=== PATIENT | male | born 1955 | race Caucasian/White ===

== ENCOUNTER 2016-03-25 19:48 | Inpatient (IN) | payer MEDICAID ==
[~2016-03-25] VITALS: Ht 180.3 cm; Wt 105.4 kg
[~2016-03-25 19:48] MED LIST: ASPI-231 PO; ATOR10TA PO; BENA40TA2 PO; CARV12.544 PO; CLOP75TA28 PO; INSLANTI SC; METF-316 PO; NOVOLOG SC; RANO1000 PO; SERT-160 PO
[2016-03-25 21:40] LABS: Basophils # (auto) 0 uL; Basophils % (auto) 0.2 % (0.0-2.0); Eosinophils # (auto) 0 uL; Eosinophils % (auto) 0.4 % (0.0-7.0); Hematocrit 39.3 % (41.0-53.0); Lymphocytes # (auto) 0.2 uL; Lymphocytes % (auto) 1.6 % (10.0-50.0); Mean Corpuscular Hemoglobin 29.6 pg (28.0-32.0); Mean Corpuscular Hgb Conc. 33.1 g/dL (32.0-36.0); Mean Corpuscular Volume 89.4 fL (80.0-100.0); Mean Platelet Volume 7.4 fL (7.4-10.4); Monocytes # (auto) 0.3 uL; Monocytes % (auto) 2.5 % (0.0-12.0); Neutrophils # (auto) 10.4 uL; Neutrophils % (auto) 95.3 % (37.0-80.0); Platelet Count (auto) 231 10^3/uL (140-450); Red Cell Distribution Width 15.4 % (11.6-16.0); White Blood Cell 10.9 10^3/uL (4.4-10.8)
[2016-03-25 22:08] LABS: Albumin 3.4 g/dL (3.4-5.0); BUN/Creatinine Ratio 18.3; Bilirubin, Total 2.1 mg/dL (0.2-1.0); Calcium 8.3 mg/dL (8.5-10.1); Magnesium 1.8 mg/dL (1.6-2.6); Potassium 3.8 mmol/L (3.5-5.1); Total Protein 7.1 g/dL (6.4-8.2)
[2016-03-25 22:19] LABS: Partial Thromboplastin Time 20.9 sec (22.64-33.71); Prothrombin Time 10.3 sec (9.37-12.3)
[2016-03-25] MEDS ORDERED: AMLO5TAB2 PO (22:51)
[2016-03-25] MEDS ORDERED: BENA40TA2 PO (22:51)
[2016-03-25] MEDS ORDERED: PIPERACILLIN-TAZOB 3.375GM 100 ML IV ONE (23:15)
[2016-03-26] VITALS (7 sets, daily range): BP systolic 131–155; BP diastolic 65–81
[2016-03-26] MEDS ORDERED: ACETAMINOPHEN 325 MG TAB PO PRN (00:30)
[2016-03-26] MEDS ORDERED: DEXTROSE (50%) 50ML SYRG IV PRN (00:30)
[2016-03-26] MEDS ORDERED: ONDANSETRON HCL 4 MG/2 ML VIAL IV PRN (00:30)
[2016-03-26 01:58] LABS: Temperature: 23.5 C (20.0-25.0)
[2016-03-26] MEDS: ACCU-CHEK COMFORT CURVE STRIP VI SCH ×4 (05:56→23:55)
[2016-03-26] MEDS: InsuLIN REG 1unit/0.01ml Soln (100units/ml) SC SCH ×4 (05:59→23:57)
[2016-03-26] MEDS ORDERED: DICY20TA66 PO (07:47)
[2016-03-26] MEDS ORDERED: OMEP1POW PO (07:47)
[2016-03-26] MEDS ORDERED: FAMO-12 PO (07:47)
[2016-03-26] MEDS: SERTRALINE HCL 50 MG TAB PO SCH (09:44)
[2016-03-26] MEDS: ASPirin 81 mg TAB PO SCH (09:44)
[2016-03-26] MEDS: CLOPIDOGREL BISULFATE 75 MG TAB PO SCH (09:45)
[2016-03-26] MEDS: amLODIPine BESYLATE 5 MG TAB PO SCH (09:45)
[2016-03-26] MEDS: HYDROcodone-ACET 5/325MG TAB PO PRN ×2 (09:45→15:47)
[2016-03-26] MEDS: BENAZEPRIL HCL 10 MG TAB PO SCH (09:46)
[2016-03-26] MEDS: CARVEDILOL 12.5 MG TAB PO SCH ×2 (09:46→22:22)
[2016-03-26] MEDS: ENOXAPARIN SOD 40 MG/0.4 ML SYRINGE SC SCH (09:47)
[2016-03-26] MEDS ORDERED: LORazepam 2MG/ML-1ML VIAL IV ONE (12:00)
[2016-03-26 13:42] LABS: Basophils # (auto) 0 uL; Basophils % (auto) 0.2 % (0.0-2.0); Eosinophils # (auto) 0 uL; Hematocrit 36.3 % (41.0-53.0); Hemoglobin 12.2 g/dL (13.5-17.5); Lymphocytes # (auto) 0.2 uL; Lymphocytes % (auto) 3.9 % (10.0-50.0); Mean Corpuscular Hgb Conc. 33.5 g/dL (32.0-36.0); Mean Corpuscular Volume 89.7 fL (80.0-100.0); Mean Platelet Volume 7.5 fL (7.4-10.4); Monocytes # (auto) 0.1 uL; Monocytes % (auto) 2.5 % (0.0-12.0); Neutrophils # (auto) 5.4 uL; Neutrophils % (auto) 93.4 % (37.0-80.0); Platelet Count (auto) 197 10^3/uL (140-450); Red Cell Distribution Width 15.5 % (11.6-16.0); White Blood Cell 5.8 10^3/uL (4.4-10.8)
[2016-03-26 14:07] LABS: BUN/Creatinine Ratio 14.4; Calcium 8.5 mg/dL (8.5-10.1); Magnesium 2.1 mg/dL (1.6-2.6); Potassium 3.7 mmol/L (3.5-5.1)
[2016-03-26] MEDS: FAMOTIDINE 20 MG TAB PO SCH ×2 (15:48→22:23)
[2016-03-26 15:49] LABS: Cholesterol 178 mg/dL (<200); HDL Cholesterol 45 mg/dL (40-59); LDL Cholesterol 113 mg/dL (<100); Triglycerides 221 mg/dL (<150)
[2016-03-26] MEDS ORDERED: IOHEXOL 350 MG/ML 100ML IJ ONE (17:00)
[2016-03-26] MEDS: ATORVASTATIN 20 MG TAB PO SCH (22:23)
[2016-03-27] MEDS: HYDROcodone-ACET 5/325MG TAB PO PRN ×2 (02:36→13:27)
[2016-03-27 05:30] VITALS: BP 121/66
[2016-03-27] MEDS: ACCU-CHEK COMFORT CURVE STRIP VI SCH ×3 (06:10→17:39)
[2016-03-27] MEDS: InsuLIN REG 1unit/0.01ml Soln (100units/ml) SC SCH ×3 (06:16→17:40)
[2016-03-27 07:22] LABS: Albumin 2.7 g/dL (3.4-5.0); Bilirubin, Total 2.3 mg/dL (0.2-1.0); Magnesium 2.1 mg/dL (1.6-2.6); Potassium 3.7 mmol/L (3.5-5.1); Total Protein 6.1 g/dL (6.4-8.2)
[2016-03-27 07:35] LABS: Basophils # (auto) 0 uL; Eosinophils # (auto) 0 uL; Eosinophils % (auto) 0.1 % (0.0-7.0); Hematocrit 33.3 % (41.0-53.0); Hemoglobin 11.3 g/dL (13.5-17.5); Lymphocytes # (auto) 0.3 uL; Mean Corpuscular Volume 88.4 fL (80.0-100.0); Mean Platelet Volume 8.2 fL (7.4-10.4); Monocytes # (auto) 0.3 uL; Monocytes % (auto) 8.5 % (0.0-12.0); Neutrophils # (auto) 3.1 uL; Neutrophils % (auto) 83.4 % (37.0-80.0); Platelet Count (auto) 154 10^3/uL (140-450); Red Cell Distribution Width 15.9 % (11.6-16.0); White Blood Cell 3.7 10^3/uL (4.4-10.8)
[2016-03-27 07:38] LABS: INR 1.13 (0.9-1.15); Prothrombin Time 11.6 sec (9.37-12.3)
[2016-03-27 09:00] VITALS: BP 101/51
[2016-03-27] MEDS ORDERED: MORPHINE SULF INJ 2 MG/ML SYRINGE 1ML IV ONE (09:15)
[2016-03-27] MEDS: ENOXAPARIN SOD 40 MG/0.4 ML SYRINGE SC SCH (10:09)
[2016-03-27] MEDS ORDERED: VANCOMYCIN 1GM/250ML D5W 250 ML IV ONE (11:45)
[2016-03-27] MEDS ORDERED: VANCOMYCIN PER PHARMACY 0 MG IV SCH (11:45)
[2016-03-27 13:00] VITALS: BP 104/66
[2016-03-27] MEDS: FAMOTIDINE 20 MG TAB PO SCH ×2 (13:27→22:11)
[2016-03-27] MEDS: CLOPIDOGREL BISULFATE 75 MG TAB PO SCH (13:29)
[2016-03-27] MEDS: CARVEDILOL 12.5 MG TAB PO SCH ×2 (13:29→22:10)
[2016-03-27] MEDS: ASPirin 81 mg TAB PO SCH (13:29)
[2016-03-27] MEDS: amLODIPine BESYLATE 5 MG TAB PO SCH (13:32)
[2016-03-27] MEDS: SERTRALINE HCL 50 MG TAB PO SCH (13:33)
[2016-03-27] MEDS: BENAZEPRIL HCL 10 MG TAB PO SCH (13:33)
[2016-03-27] MEDS: VANCOMYCIN 1,500 MG in D5W 5% 250 ML IV SCH (14:03)
[2016-03-27] MEDS ORDERED: NITROGLYCERIN 0.4 MG SL TAB SL PRN ×2 (15:30)
[2016-03-27] MEDS ORDERED: MORPHINE SULF INJ 2 MG/ML SYRINGE 1ML IV PRN ×2 (15:30)
[2016-03-27 17:19] VITALS: BP 102/51
[2016-03-27] MEDS: INSULIN DETEMIR(LEVEMIR) 1unit/0.01ml Soln (100units/ml) SC SCH (17:40)
[2016-03-27 18:20] LABS: Urine Bilirubin Negative (Negative); Urine Blood TRACE /uL (Negative); Urine Color Yellow (Yellow); Urine Ketone Negative (Negative); Urine Mucus FEW (None Seen); Urine Nitrite Negative (Negative); Urine RBC 4 /hpf (0 - 3); Urine Squamous Epithelial Cell FEW /hpf (<5); Urine Urobilinogen Normal (Negative)
[2016-03-27 18:27] LABS: Urine Glucose 4+ mg/dL (Normal)
[2016-03-27 21:30] VITALS: BP 108/56
[2016-03-27] MEDS: SODIUM CHLOR 0.9% PF (SALINE LOCK) 10ML VIAL IV SCH (22:10)
[2016-03-27] MEDS: ATORVASTATIN 20 MG TAB PO SCH (22:11)
[2016-03-28] MEDS: VANCOMYCIN 1,500 MG in D5W 5% 250 ML IV SCH ×2 (02:13→14:32)
[2016-03-28 05:00] VITALS: BP 119/62
[2016-03-28] MEDS: InsuLIN REG 1unit/0.01ml Soln (100units/ml) SC SCH ×4 (06:00→18:16)
[2016-03-28] MEDS: SODIUM CHLOR 0.9% PF (SALINE LOCK) 10ML VIAL IV SCH ×2 (06:02→14:00)
[2016-03-28] MEDS: ACCU-CHEK COMFORT CURVE STRIP VI SCH ×4 (06:11→18:16)
[2016-03-28 07:11] LABS: BUN/Creatinine Ratio 21.8; Calcium 7.8 mg/dL (8.5-10.1); Magnesium 2.4 mg/dL (1.6-2.6); Potassium 3.6 mmol/L (3.5-5.1)
[2016-03-28 09:06] VITALS: BP 137/70
[2016-03-28] MEDS ORDERED: LIDOCAINE VISCOUS 2% 15ML UD PO ONE (09:45)
[2016-03-28] MEDS ORDERED: fentaNYL CITRATE 100 MCG/2 ML VL IV ONE (09:45)
[2016-03-28] MEDS ORDERED: MIDAZOLAM HCL 5 MG/ML-1ML VIAL IV ONE (09:45)
[2016-03-28 09:49] LABS: Basophils # (auto) 0 uL; Basophils % (auto) 0.5 % (0.0-2.0); Eosinophils # (auto) 0.1 uL; Eosinophils % (auto) 2.7 % (0.0-7.0); Hemoglobin 10.8 g/dL (13.5-17.5); Lymphocytes # (auto) 0.9 uL; Lymphocytes % (auto) 21.8 % (10.0-50.0); Mean Corpuscular Hemoglobin 29.4 pg (28.0-32.0); Mean Corpuscular Hgb Conc. 32.8 g/dL (32.0-36.0); Mean Corpuscular Volume 89.6 fL (80.0-100.0); Mean Platelet Volume 8.6 fL (7.4-10.4); Monocytes # (auto) 0.4 uL; Monocytes % (auto) 9.3 % (0.0-12.0); Neutrophils # (auto) 2.6 uL; Neutrophils % (auto) 65.7 % (37.0-80.0); Platelet Count (auto) 165 10^3/uL (140-450); White Blood Cell 3.9 10^3/uL (4.4-10.8)
[2016-03-28] MEDS ORDERED: MIDAZOLAM HCL 1MG/1ML-2 ML VIAL ONE (09:54)
[2016-03-28] MEDS: amLODIPine BESYLATE 5 MG TAB PO SCH (10:00)
[2016-03-28] MEDS: BENAZEPRIL HCL 10 MG TAB PO SCH (10:00)
[2016-03-28] MEDS: ASPirin 81 mg TAB PO SCH (10:00)
[2016-03-28] MEDS: INSULIN DETEMIR(LEVEMIR) 1unit/0.01ml Soln (100units/ml) SC SCH (10:00)
[2016-03-28] MEDS: CARVEDILOL 12.5 MG TAB PO SCH ×2 (10:00→21:27)
[2016-03-28] MEDS: FAMOTIDINE 20 MG TAB PO SCH ×2 (10:00→21:26)
[2016-03-28] MEDS: ENOXAPARIN SOD 40 MG/0.4 ML SYRINGE SC SCH (10:00)
[2016-03-28 13:18] VITALS: BP 114/60
[2016-03-28] MEDS: CLOPIDOGREL BISULFATE 75 MG TAB PO SCH (14:07)
[2016-03-28] MEDS: SERTRALINE HCL 50 MG TAB PO SCH (14:08)
[2016-03-28] MEDS: HYDROcodone-ACET 5/325MG TAB PO PRN ×2 (14:08→21:26)
[2016-03-28 17:00] VITALS: BP 126/66
[2016-03-28] MEDS: MORPHINE SULF INJ 2 MG/ML SYRINGE 1ML IV PRN (18:52)
[2016-03-28 20:00] VITALS: BP 136/72
[2016-03-28] MEDS: ATORVASTATIN 20 MG TAB PO SCH (21:26)
[2016-03-28 22:00] VITALS: BP 136/72
[2016-03-29] MEDS: InsuLIN REG 1unit/0.01ml Soln (100units/ml) SC SCH ×5 (01:20→23:34)
[2016-03-29] MEDS: SODIUM CHLOR 0.9% PF (SALINE LOCK) 10ML VIAL IV SCH ×4 (01:20→22:21)
[2016-03-29] MEDS: VANCOMYCIN 1,500 MG in D5W 5% 250 ML IV SCH ×2 (02:57→14:01)
[2016-03-29 05:28] VITALS: BP 120/66
[2016-03-29] MEDS: ACCU-CHEK COMFORT CURVE STRIP VI SCH ×5 (05:56→23:31)
[2016-03-29 06:23] LABS: Basophils # (auto) 0 uL; Basophils % (auto) 0.4 % (0.0-2.0); Eosinophils # (auto) 0.2 uL; Eosinophils % (auto) 3.5 % (0.0-7.0); Hemoglobin 11.3 g/dL (13.5-17.5); Lymphocytes # (auto) 1.4 uL; Lymphocytes % (auto) 31.4 % (10.0-50.0); Mean Corpuscular Hemoglobin 29.2 pg (28.0-32.0); Mean Corpuscular Hgb Conc. 33.1 g/dL (32.0-36.0); Mean Corpuscular Volume 88.2 fL (80.0-100.0); Mean Platelet Volume 8.2 fL (7.4-10.4); Monocytes # (auto) 0.5 uL; Neutrophils # (auto) 2.4 uL; Neutrophils % (auto) 53.7 % (37.0-80.0); Platelet Count (auto) 194 10^3/uL (140-450); Red Cell Distribution Width 15.7 % (11.6-16.0); White Blood Cell 4.5 10^3/uL (4.4-10.8)
[2016-03-29 06:51] LABS: BUN/Creatinine Ratio 21.9; Calcium 8.2 mg/dL (8.5-10.1); Magnesium 2.5 mg/dL (1.6-2.6); Phosphorus 3.4 mg/dL (2.5-4.90); Potassium 3.6 mmol/L (3.5-5.1)
[2016-03-29 09:00] VITALS: BP 122/83
[2016-03-29] MEDS: INSULIN DETEMIR(LEVEMIR) 1unit/0.01ml Soln (100units/ml) SC SCH (10:01)
[2016-03-29] MEDS: ENOXAPARIN SOD 40 MG/0.4 ML SYRINGE SC SCH (10:14)
[2016-03-29] MEDS: BENAZEPRIL HCL 10 MG TAB PO SCH (10:16)
[2016-03-29] MEDS: SERTRALINE HCL 50 MG TAB PO SCH (10:16)
[2016-03-29] MEDS: ASPirin 81 mg TAB PO SCH (10:16)
[2016-03-29] MEDS: FAMOTIDINE 20 MG TAB PO SCH ×2 (10:16→22:19)
[2016-03-29] MEDS: CLOPIDOGREL BISULFATE 75 MG TAB PO SCH (10:16)
[2016-03-29] MEDS: amLODIPine BESYLATE 5 MG TAB PO SCH (10:17)
[2016-03-29] MEDS: CARVEDILOL 12.5 MG TAB PO SCH ×2 (10:18→22:20)
[2016-03-29] MEDS: MORPHINE SULF INJ 2 MG/ML SYRINGE 1ML IV PRN ×2 (12:10→23:25)
[2016-03-29 12:49] LABS: INR 0.95 (0.9-1.15); Prothrombin Time 9.8 sec (9.37-12.3)
[2016-03-29 12:50] VITALS: BP 161/88
[2016-03-29 16:17] VITALS: BP 131/69
[2016-03-29] MEDS ORDERED: WARFARIN SODIUM 10 MG TAB PO ONE (17:00)
[2016-03-29 20:00] VITALS: BP 109/56
[2016-03-29 22:00] VITALS: BP 109/58
[2016-03-29] MEDS ORDERED: PATIENTS OWN MEDICATION PO SCH ×2 (22:00)
[2016-03-29] MEDS: RANOLAZINE ER 500 MG TAB PO SCH (22:18)
[2016-03-29] MEDS: ATORVASTATIN 20 MG TAB PO SCH (22:19)
[2016-03-30] VITALS (7 sets, daily range): BP systolic 130–148; BP diastolic 65–78
[2016-03-30] MEDS: VANCOMYCIN 1,500 MG in D5W 5% 250 ML IV SCH ×2 (01:41→13:54)
[2016-03-30] MEDS: ACCU-CHEK COMFORT CURVE STRIP VI SCH ×4 (06:00→23:42)
[2016-03-30 06:06] LABS: Basophils # (auto) 0 uL; Basophils % (auto) 0.2 % (0.0-2.0); Eosinophils # (auto) 0.2 uL; Hematocrit 31.8 % (41.0-53.0); Hemoglobin 10.6 g/dL (13.5-17.5); Lymphocytes # (auto) 1.7 uL; Lymphocytes % (auto) 28.6 % (10.0-50.0); Mean Corpuscular Hemoglobin 29.4 pg (28.0-32.0); Mean Corpuscular Hgb Conc. 33.5 g/dL (32.0-36.0); Mean Corpuscular Volume 87.9 fL (80.0-100.0); Mean Platelet Volume 7.7 fL (7.4-10.4); Monocytes # (auto) 0.6 uL; Monocytes % (auto) 9.4 % (0.0-12.0); Neutrophils # (auto) 3.4 uL; Neutrophils % (auto) 57.8 % (37.0-80.0); Platelet Count (auto) 238 10^3/uL (140-450); Red Cell Distribution Width 15.6 % (11.6-16.0); White Blood Cell 5.9 10^3/uL (4.4-10.8)
[2016-03-30 06:13] LABS: INR 0.97 (0.9-1.15); Partial Thromboplastin Time 26.7 sec (22.64-33.71)
[2016-03-30 06:36] LABS: BUN/Creatinine Ratio 23.5; Calcium 8.2 mg/dL (8.5-10.1); Magnesium 2.3 mg/dL (1.6-2.6); Potassium 3.7 mmol/L (3.5-5.1)
[2016-03-30] MEDS: SODIUM CHLOR 0.9% PF (SALINE LOCK) 10ML VIAL IV SCH ×3 (06:47→22:02)
[2016-03-30] MEDS: InsuLIN REG 1unit/0.01ml Soln (100units/ml) SC SCH ×4 (06:47→23:44)
[2016-03-30] MEDS: INSULIN DETEMIR(LEVEMIR) 1unit/0.01ml Soln (100units/ml) SC SCH (10:00)
[2016-03-30] MEDS: CARVEDILOL 12.5 MG TAB PO SCH ×2 (10:58→22:02)
[2016-03-30] MEDS: BENAZEPRIL HCL 10 MG TAB PO SCH (10:58)
[2016-03-30] MEDS: ENOXAPARIN SOD 40 MG/0.4 ML SYRINGE SC SCH (10:59)
[2016-03-30] MEDS: SERTRALINE HCL 50 MG TAB PO SCH (10:59)
[2016-03-30] MEDS: FAMOTIDINE 20 MG TAB PO SCH ×2 (10:59→22:02)
[2016-03-30] MEDS: amLODIPine BESYLATE 5 MG TAB PO SCH (10:59)
[2016-03-30] MEDS: ASPirin 81 mg TAB PO SCH (11:00)
[2016-03-30] MEDS: RANOLAZINE ER 500 MG TAB PO SCH ×2 (13:54→22:03)
[2016-03-30 16:06] LABS: INR 1.06 (0.9-1.15); Prothrombin Time 10.9 sec (9.37-12.3)
[2016-03-30] MEDS ORDERED: WARFARIN SODIUM 10 MG TAB PO ONE (17:00)
[2016-03-30] MEDS: DOXYCYCLINE HYC 100MG/250ML 250 ML IV SCH (17:47)
[2016-03-30] MEDS: MORPHINE SULF INJ 2 MG/ML SYRINGE 1ML IV PRN (22:02)
[2016-03-30] MEDS: ATORVASTATIN 20 MG TAB PO SCH (22:02)
[2016-03-31] MEDS: DOXYCYCLINE HYC 100MG/250ML 250 ML IV SCH ×2 (03:33→15:15)
[2016-03-31 05:00] VITALS: BP 147/68
[2016-03-31] MEDS: SODIUM CHLOR 0.9% PF (SALINE LOCK) 10ML VIAL IV SCH ×2 (05:44→14:00)
[2016-03-31 05:53] LABS: Basophils # (auto) 0 uL; Basophils % (auto) 0.2 % (0.0-2.0); Eosinophils # (auto) 0.3 uL; Eosinophils % (auto) 3.4 % (0.0-7.0); Hematocrit 32.7 % (41.0-53.0); Hemoglobin 10.8 g/dL (13.5-17.5); Lymphocytes % (auto) 24.2 % (10.0-50.0); Mean Corpuscular Hemoglobin 29.3 pg (28.0-32.0); Mean Corpuscular Volume 88.6 fL (80.0-100.0); Mean Platelet Volume 7.5 fL (7.4-10.4); Monocytes # (auto) 0.6 uL; Monocytes % (auto) 7.3 % (0.0-12.0); Neutrophils # (auto) 5.3 uL; Neutrophils % (auto) 64.9 % (37.0-80.0); Platelet Count (auto) 253 10^3/uL (140-450); Red Cell Distribution Width 15.8 % (11.6-16.0); White Blood Cell 8.2 10^3/uL (4.4-10.8)
[2016-03-31] MEDS: ACCU-CHEK COMFORT CURVE STRIP VI SCH ×2 (05:58→12:00)
[2016-03-31] MEDS: InsuLIN REG 1unit/0.01ml Soln (100units/ml) SC SCH ×2 (06:00→12:00)
[2016-03-31 06:04] LABS: Partial Thromboplastin Time 28.5 sec (22.64-33.71)
[2016-03-31 06:15] LABS: BUN/Creatinine Ratio 22.6; Calcium 8.2 mg/dL (8.5-10.1); Magnesium 2.1 mg/dL (1.6-2.6); Phosphorus 3.3 mg/dL (2.5-4.90)
[2016-03-31 06:36] LABS: INR 1.45 (0.9-1.15); Prothrombin Time 14.9 sec (9.37-12.3)
[2016-03-31 09:00] VITALS: BP 146/72
[2016-03-31] MEDS: INSULIN DETEMIR(LEVEMIR) 1unit/0.01ml Soln (100units/ml) SC SCH (10:00)
[2016-03-31] MEDS: ASPirin 81 mg TAB PO SCH (10:37)
[2016-03-31] MEDS: CARVEDILOL 12.5 MG TAB PO SCH (10:37)
[2016-03-31] MEDS: BENAZEPRIL HCL 10 MG TAB PO SCH (10:38)
[2016-03-31] MEDS: amLODIPine BESYLATE 5 MG TAB PO SCH (10:38)
[2016-03-31] MEDS: SERTRALINE HCL 50 MG TAB PO SCH (10:39)
[2016-03-31] MEDS: RANOLAZINE ER 500 MG TAB PO SCH (10:39)
[2016-03-31] MEDS: FAMOTIDINE 20 MG TAB PO SCH (10:39)
[2016-03-31] MEDS: ENOXAPARIN SOD 40 MG/0.4 ML SYRINGE SC SCH (10:40)
[2016-03-31 13:00] VITALS: BP 123/67
[2016-03-31 16:20] VITALS: BP 136/80
[2016-03-31 17:00] VITALS: BP 132/57
[2016-03-31] MEDS ORDERED: WARFARIN SODIUM 5 MG TAB PO ONE (17:00)
== END 2016-03-31 18:22 | DRG 45 ==
LOC: EDBD 19:48 → ER 20:18 → OVERFLOW 20:19 → EAST 03-26 01:48 → TELE-EAST 03-27 16:12
PROVIDERS: ADMIT Nurse Practitioner; ATTEND Internal Medicine
PROC: B24BZZ4 Ultrasonography of Heart with Aorta, Transesophageal (ICD-10-PCS; principal; 2016-03-28)
DX: I63.9 Cerebral infarction, unspecified (principal); G93.41 Metabolic encephalopathy; R78.81 Bacteremia; E11.65 Type 2 diabetes mellitus with hyperglycemia; G81.91 Hemiplegia, unspecified affecting right dominant side; E66.01 Morbid (severe) obesity due to excess calories; I07.1 Rheumatic tricuspid insufficiency; I10 Essential (primary) hypertension; E78.5 Hyperlipidemia, unspecified; K21.9 Gastro-esophageal reflux disease without esophagitis; B95.61 Methicillin susceptible Staphylococcus aureus infection as the cause of diseases classified elsewhere; R50.9 Fever, unspecified; G51.0 Bell's palsy; J32.3 Chronic sphenoidal sinusitis; B96.89 Other specified bacterial agents as the cause of diseases classified elsewhere; F32.9 Major depressive disorder, single episode, unspecified; I25.119 Atherosclerotic heart disease of native coronary artery with unspecified angina pectoris; I73.9 Peripheral vascular disease, unspecified; R29.701 NIHSS score 1; Z79.02 Long term (current) use of antithrombotics/antiplatelets; Z79.82 Long term (current) use of aspirin; Z86.73 Personal history of transient ischemic attack (TIA), and cerebral infarction without residual deficits; Z95.5 Presence of coronary angioplasty implant and graft; Z98.890 Other specified postprocedural states
CPT/HCPCS: 36415; 70450; 70460; 70491; 70551; 71010; 80048; 80053; 80061; 80202; 81001; 82962; 83036; 83735; 83880; 84100; 84484; 85025; 85610; 85730; 87040; 87077; 87081; 87086; 87147; 87186; 92610; 93005; 93306; 93312; 93886; 96365; 96366; 97001; 97110; 97116; 97530; J1815; J2250; J2543; J3490; J7060

== ENCOUNTER 2016-06-01 17:48 | Emergency (ER) | payer MEDICAID ==
[~2016-06-01] VITALS: Ht 188 cm; Wt 77.1 kg
[~2016-06-01 17:48] MED LIST changes: +AMLO5TAB2 PO; -CLOP75TA28 PO; +DICY20TA66 PO; +FAMO-12 PO; +OMEP1POW PO
[2016-06-01 18:56] LABS: Urine Bilirubin Negative (Negative); Urine Color Yellow (Yellow); Urine Glucose Normal (Normal); Urine Hyaline Cast FEW /lpf (0 - 2); Urine Ketone Negative (Negative); Urine Mucus FEW (None Seen); Urine Nitrite Negative (Negative); Urine RBC 17 /hpf (0 - 3); Urine Squamous Epithelial Cell FEW /hpf (<5); Urine Urobilinogen Normal (Negative); Urine pH 5.5 (5.0-8.0)
[2016-06-01 18:57] LABS: Urine Blood 2+ /uL (Negative)
[2016-06-01 19:10] LABS: Basophils # (auto) 0 uL; Basophils % (auto) 0.3 % (0.0-2.0); Eosinophils # (auto) 0.2 uL; Eosinophils % (auto) 1.9 % (0.0-7.0); Hematocrit 31.6 % (41.0-53.0); Hemoglobin 10.7 g/dL (13.5-17.5); Lymphocytes # (auto) 1.1 uL; Lymphocytes % (auto) 13.1 % (10.0-50.0); Mean Corpuscular Hemoglobin 30.3 pg (28.0-32.0); Monocytes # (auto) 0.4 uL; Monocytes % (auto) 5.6 % (0.0-12.0); Neutrophils # (auto) 6.4 uL; Neutrophils % (auto) 79.1 % (37.0-80.0); Platelet Count (auto) 363 10^3/uL (140-450)
[2016-06-01 19:40] LABS: Albumin 3.3 g/dL (3.4-5.0); BUN/Creatinine Ratio 20.2; Bilirubin, Total 1.1 mg/dL (0.2-1.0); Total Protein 7.1 g/dL (6.4-8.2)
[2016-06-01] MEDS ORDERED: NITROFURANTOIN (MONO) 100 mg CAP PO ONE (20:30)
[2016-06-01 21:05] VITALS: BP 153/79
== END 2016-06-01 23:12 | disposition home or self-care (01) ==
LOC: ER 17:59
DX: N39.0 Urinary tract infection, site not specified (principal); I10 Essential (primary) hypertension; E11.9 Type 2 diabetes mellitus without complications; I25.10 Atherosclerotic heart disease of native coronary artery without angina pectoris; Z79.4 Long term (current) use of insulin; Z79.82 Long term (current) use of aspirin; Z74.01 Bed confinement status; Z86.73 Personal history of transient ischemic attack (TIA), and cerebral infarction without residual deficits; E78.5 Hyperlipidemia, unspecified; I25.2 Old myocardial infarction; Z79.899 Other long term (current) drug therapy
CPT/HCPCS: 36415; 51702; 80053; 81001; 85025

== ENCOUNTER 2016-08-01 13:26 | Inpatient (IN) | payer MEDICAID ==
[~2016-08-01] VITALS: Ht 180.3 cm; Wt 86.1 kg
[~2016-08-01 13:26] MED LIST changes: -BENA40TA2 PO; +BENA40TA7 PO; -METF-316 PO; +METF-372 PO
[2016-08-01 14:23] LABS: Basophils # (auto) 0 uL; Basophils % (auto) 0.4 % (0.0-2.0); CONDITION AutoValidated; Eosinophils # (auto) 0.3 uL; Eosinophils % (auto) 4.3 % (0.0-7.0); Hematocrit 30.1 % (41.0-53.0); Hemoglobin 10.5 g/dL (13.5-17.5); Lymphocytes % (auto) 27.4 % (10.0-50.0); Mean Corpuscular Hemoglobin 31.7 pg (28.0-32.0); Mean Corpuscular Hgb Conc. 34.9 g/dL (32.0-36.0); Mean Corpuscular Volume 90.8 fL (80.0-100.0); Mean Platelet Volume 7.3 fL (7.4-10.4); Monocytes # (auto) 0.5 uL; Monocytes % (auto) 6.3 % (0.0-12.0); Neutrophils # (auto) 4.5 uL; Neutrophils % (auto) 61.6 % (37.0-80.0); Platelet Count (auto) 421 10^3/uL (140-450); Red Cell Distribution Width 17.5 % (11.6-16.0); White Blood Cell 7.4 10^3/uL (4.4-10.8)
[2016-08-01 14:50] LABS: Albumin 3.8 g/dL (3.4-5.0); Alkaline Phosphatase 55 U/L (45-117); Anion Gap 11 (5-15); Aspartate Aminotransferase 23 U/L (15-37); BUN/Creatinine Ratio 17.6; Bilirubin, Total 0.9 mg/dL (0.2-1.0); Blood Urea Nitrogen 19 mg/dL (7-18); Calcium 8.7 mg/dL (8.5-10.1); Carbon Dioxide 23 mmol/L (21-32); Chloride 104 mmol/L (98-107); GFR African American 90 mL/min; GFR Non-African American 74 mL/min; Glucose 173 mg/dL (74-106); Magnesium 1.8 mg/dL (1.6-2.6); Potassium 3.8 mmol/L (3.5-5.1); Sodium 138 mmol/L (136-145); Total Protein 7.3 g/dL (6.4-8.2)
[2016-08-01] MEDS ORDERED: ENOXAPARIN SOD 100 MG/1 ML SYRINGE SC ONE (18:15)
[2016-08-01 18:35] LABS: INR 0.95 (0.9-1.15); Partial Thromboplastin Time 24.4 sec (22.64-33.71); Prothrombin Time 10.4 sec (9.37-12.3)
[2016-08-01 19:31] LABS: Urine Bilirubin Negative (Negative); Urine Blood 2+ /uL (Negative); Urine Color Brown (Yellow); Urine Glucose Normal (Normal); Urine Ketone Negative (Negative); Urine Mucus FEW (None Seen); Urine Nitrite Negative (Negative); Urine RBC 79 /hpf (0 - 3); Urine Squamous Epithelial Cell FEW /hpf (<5); Urine Urobilinogen Normal (Negative); Urine pH 5.5 (5.0-8.0)
[2016-08-01] MEDS ORDERED: ONDANSETRON HCL 4 MG/2 ML VIAL IV ONE (19:45)
[2016-08-01] MEDS ORDERED: HYDROmorphone HCL 2 MG/ML VL IV ONE (19:45)
[2016-08-01] MEDS ORDERED: MORPHINE SULF INJ 2 MG/ML SYRINGE 1ML IV PRN (23:30)
[2016-08-01] MEDS ORDERED: DEXTROSE (50%) 50ML SYRG IV PRN (23:30)
[2016-08-01] MEDS ORDERED: NITROGLYCERIN 0.4 MG SL TAB SL PRN (23:30)
[2016-08-01] MEDS ORDERED: ONDANSETRON HCL 4 MG/2 ML VIAL IV PRN (23:30)
[2016-08-01] MEDS ORDERED: TEMAZEPAM 15 MG CAP PO PRN (23:30)
[2016-08-01] MEDS ORDERED: HYDROcodone-ACET 5/325MG TAB PO PRN (23:30)
[2016-08-01] MEDS ORDERED: ACETAMINOPHEN 325 MG TAB PO PRN (23:30)
[2016-08-02] MEDS: ACCU-CHEK COMFORT CURVE STRIP VI SCH ×3 (00:08→11:23)
[2016-08-02] MEDS: MORPHINE SULF INJ 2 MG/ML SYRINGE 1ML IV PRN ×3 (00:15→11:04)
[2016-08-02 01:00] VITALS: BP 171/85
[2016-08-02 03:27] VITALS: BP 141/74
[2016-08-02 05:05] VITALS: BP 127/65
[2016-08-02] MEDS: InsuLIN REG 1unit/0.01ml Soln (100units/ml) SC SCH ×3 (05:50→11:23)
[2016-08-02 07:03] LABS: Basophils # (auto) 0 uL; Basophils % (auto) 0.4 % (0.0-2.0); CONDITION AutoValidated; Eosinophils # (auto) 0.4 uL; Eosinophils % (auto) 6.4 % (0.0-7.0); Hemoglobin 9.5 g/dL (13.5-17.5); Lymphocytes # (auto) 1.8 uL; Lymphocytes % (auto) 30.1 % (10.0-50.0); Mean Corpuscular Hemoglobin 31.7 pg (28.0-32.0); Mean Corpuscular Hgb Conc. 35.3 g/dL (32.0-36.0); Mean Corpuscular Volume 89.8 fL (80.0-100.0); Monocytes # (auto) 0.4 uL; Monocytes % (auto) 7.6 % (0.0-12.0); Neutrophils # (auto) 3.3 uL; Neutrophils % (auto) 55.5 % (37.0-80.0); Platelet Count (auto) 287 10^3/uL (140-450); Red Cell Distribution Width 16.6 % (11.6-16.0); White Blood Cell 5.9 10^3/uL (4.4-10.8)
[2016-08-02 07:38] LABS: Albumin 3.1 g/dL (3.4-5.0); BUN/Creatinine Ratio 17.6; Potassium 3.5 mmol/L (3.5-5.1)
[2016-08-02 07:46] LABS: Bilirubin, Total 0.5 mg/dL (0.2-1.0); Total Protein 6.4 g/dL (6.4-8.2)
[2016-08-02 09:31] VITALS: BP 127/70
[2016-08-02] MEDS ORDERED: CLOPIDOGREL BISULFATE 75 MG TAB PO SCH (10:00)
[2016-08-02] MEDS ORDERED: ENOXAPARIN SOD 100 MG/1 ML SYRINGE SC SCH (10:00)
[2016-08-02] MEDS ORDERED: ENOXAPARIN SOD 80 MG/0.8ML SYRINGE SC SCH (10:00)
[2016-08-02] MEDS ORDERED: CARVEDILOL 12.5 MG TAB PO SCH (10:00)
[2016-08-02] MEDS ORDERED: amLODIPine BESYLATE 5 MG TAB PO SCH (10:00)
[2016-08-02] MEDS ORDERED: FAMOTIDINE 20 MG TAB PO SCH (10:00)
[2016-08-02] MEDS ORDERED: RANOLAZINE ER 500 MG TAB PO SCH (11:30)
[2016-08-02] MEDS ORDERED: WARFARIN SODIUM 5 MG TAB PO ONE (12:45)
[2016-08-02 13:18] VITALS: BP 118/71
[2016-08-02 13:40] VITALS: BP 127/70
[2016-08-02] MEDS ORDERED: PRAVASTATIN SODIUM 20 MG TAB PO SCH (22:00)
== END 2016-08-02 14:20 | disposition home health service (06) | DRG 197 ==
LOC: ER 13:32 → TELE 13:33 → TELE-EAST 08-02 00:50
PROVIDERS: ADMIT Nurse Practitioner; ATTEND Nurse Practitioner
DX: I82.A11 Acute embolism and thrombosis of right axillary vein (principal); L89.153 Pressure ulcer of sacral region, stage 3; E11.65 Type 2 diabetes mellitus with hyperglycemia; I69.351 Hemiplegia and hemiparesis following cerebral infarction affecting right dominant side; I10 Essential (primary) hypertension; E78.5 Hyperlipidemia, unspecified; I25.10 Atherosclerotic heart disease of native coronary artery without angina pectoris; I25.2 Old myocardial infarction; Z79.4 Long term (current) use of insulin; Z98.61 Coronary angioplasty status; Z79.82 Long term (current) use of aspirin; Z71.89 Other specified counseling
CPT/HCPCS: 36415; 73030; 80053; 81001; 82962; 83735; 84484; 85025; 85610; 85730; 87081; 93971; 96372; 96374; 96375; J1815; J2405

== ENCOUNTER 2016-10-25 16:17 | Inpatient (IN) | payer MEDICAID ==
[~2016-10-25] VITALS: Ht 175.3 cm; Wt 87.8 kg
[~2016-10-25 16:17] MED LIST changes: +BUME2TAB3 PO
[2016-10-25] MEDS ORDERED: cefTRIAXone 1GM/50ML D5W 50 ML IV ONE (17:00)
[2016-10-25 17:18] LABS: Basophils # (auto) 0 uL; Basophils % (auto) 0.4 % (0.0-2.0); Eosinophils # (auto) 0.2 uL; Eosinophils % (auto) 2.9 % (0.0-7.0); Hematocrit 30.3 % (41.0-53.0); Hemoglobin 10.1 g/dL (13.5-17.5); Lymphocytes # (auto) 2.1 uL; Lymphocytes % (auto) 25.6 % (10.0-50.0); Mean Corpuscular Hemoglobin 32.1 pg (28.0-32.0); Mean Corpuscular Hgb Conc. 33.1 g/dL (32.0-36.0); Mean Corpuscular Volume 96.8 fL (80.0-100.0); Mean Platelet Volume 7.4 fL (7.4-10.4); Monocytes # (auto) 0.5 uL; Monocytes % (auto) 6.2 % (0.0-12.0); Neutrophils # (auto) 5.3 uL; Neutrophils % (auto) 64.9 % (37.0-80.0); Nucleated Red Blood Cells % 0.1 %; Platelet Count (auto) 309 10^3/uL (140-450); Red Cell Distribution Width 15.1 % (11.6-16.0); White Blood Cell 8.2 10^3/uL (4.4-10.8)
[2016-10-25 17:34] LABS: Albumin 3.1 g/dL (3.4-5.0); Anion Gap 7 (5-15); Aspartate Aminotransferase 18 U/L (15-37); BUN/Creatinine Ratio 16.7; Blood Urea Nitrogen 17 mg/dL (7-18); Calcium 8.1 mg/dL (8.5-10.1); Carbon Dioxide 22 mmol/L (21-32); Chloride 110 mmol/L (98-107); GFR African American 96 mL/min; GFR Non-African American 79 mL/min; Glucose 127 mg/dL (74-106); Magnesium 2.2 mg/dL (1.6-2.6); Potassium 4.2 mmol/L (3.5-5.1); Sodium 139 mmol/L (136-145)
[2016-10-25 17:39] LABS: Alkaline Phosphatase 42 U/L (45-117); Bilirubin, Total 1.1 mg/dL (0.2-1.0); Total Protein 6.5 g/dL (6.4-8.2)
[2016-10-25 17:48] LABS: INR 1.04 (0.9-1.15); Partial Thromboplastin Time 27.2 sec (22.64-33.71); Prothrombin Time 11.3 sec (9.37-12.3)
[2016-10-25 19:27] LABS: Temperature: 23.3 C (20.0-25.0)
[2016-10-25] MEDS ORDERED: NITROGLYCERIN 0.4 MG SL TAB SL PRN (21:45)
[2016-10-25] MEDS ORDERED: ONDANSETRON HCL 4 MG/2 ML VIAL IV PRN (21:45)
[2016-10-25] MEDS ORDERED: FUROSEMIDE 40 MG/4 ML VIAL IV ONE (21:45)
[2016-10-25] MEDS ORDERED: methylPREDNISolone SOD SUCC 125 MG/2 ML VL IV ONE (21:45)
[2016-10-25] MEDS ORDERED: IPRATROPIUM BROM 0.5 MG/2.5ML INH SOL NEB PRN (21:45)
[2016-10-25] MEDS ORDERED: ALBUTEROL SULF 2.5 MG/0.5ML(0.5%) NEB SOLN NEB ONE (21:45)
[2016-10-25] MEDS ORDERED: ALBUTEROL SULF 2.5 MG/0.5ML(0.5%) NEB SOLN NEB PRN (21:45)
[2016-10-25] MEDS ORDERED: MORPHINE SULF INJ 2 MG/ML SYRINGE 1ML IV PRN (21:45)
[2016-10-25] MEDS ORDERED: ACETAMINOPHEN 325 MG TAB PO PRN (21:45)
[2016-10-25] MEDS ORDERED: DEXTROSE (50%) 50ML SYRG IV PRN (21:45)
[2016-10-25] MEDS ORDERED: TEMAZEPAM 15 MG CAP PO PRN (21:45)
[2016-10-25] MEDS: FAMOTIDINE 20 MG TAB PO SCH (22:00)
[2016-10-25] MEDS ORDERED: RANEXA 1000 MG PO SCH (22:00)
[2016-10-25] MEDS: CARVEDILOL 12.5 MG TAB PO SCH (22:00)
[2016-10-25] MEDS: ATORVASTATIN 20 MG TAB PO SCH (22:00)
[2016-10-25 23:29] VITALS: BP 136/79
[2016-10-26] VITALS (7 sets, daily range): BP systolic 99–132; BP diastolic 53–75
[2016-10-26 00:30] LABS: Base Excess -2.6 mmol/L (-2.0-2.0); Blood COHb 0.1 % (0.5-1.5); Blood MetHb 0.2 % (0.0-1.5); HCO3 21.1 mmol/L (22-26.0); MODE NASAL CANNULA; O2Hb 86.7 % (94.0-97.0); PCO2 32.4 mmHg (35.0-45.0); PCO2(T) 32.4 mmHg (35.0-45.0); Room 1010-ERT; Sample Type Arterial; pH 7.431 (7.350-7.450)
[2016-10-26 00:39] LABS: Urine Bilirubin Negative (Negative); Urine Blood Normal /uL (Negative); Urine Color Yellow (Yellow); Urine Glucose Normal (Normal); Urine Ketone Negative (Negative); Urine Nitrite Negative (Negative); Urine RBC 7 /hpf (0 - 3); Urine Urobilinogen Normal (Negative); Urine pH 5.5 (5.0-8.0)
[2016-10-26 00:40] LABS: Urine Hyaline Cast FEW /lpf (0 - 2); Urine Mucus FEW (None Seen); Urine Squamous Epithelial Cell FEW /hpf (<5)
[2016-10-26] MEDS: InsuLIN REG 1unit/0.01ml Soln (100units/ml) SC SCH ×4 (01:36→18:18)
[2016-10-26] MEDS: ACCU-CHEK COMFORT CURVE STRIP VI SCH ×4 (06:00→18:05)
[2016-10-26 06:03] LABS: Basophils # (auto) 0 uL; Basophils % (auto) 0.2 % (0.0-2.0); CONDITION Y; Eosinophils # (auto) 0 uL; Eosinophils % (auto) 0.1 % (0.0-7.0); Hematocrit 29.5 % (41.0-53.0); Hemoglobin 10.2 g/dL (13.5-17.5); Lymphocytes # (auto) 0.6 uL; Lymphocytes % (auto) 11.1 % (10.0-50.0); Mean Corpuscular Hemoglobin 32.2 pg (28.0-32.0); Mean Corpuscular Hgb Conc. 34.7 g/dL (32.0-36.0); Mean Corpuscular Volume 92.8 fL (80.0-100.0); Monocytes # (auto) 0.1 uL; Monocytes % (auto) 1.2 % (0.0-12.0); Neutrophils # (auto) 4.6 uL; Neutrophils % (auto) 87.4 % (37.0-80.0); Platelet Count (auto) 318 10^3/uL (140-450); Red Cell Distribution Width 14.9 % (11.6-16.0); White Blood Cell 5.3 10^3/uL (4.4-10.8)
[2016-10-26 06:28] LABS: Potassium 4.1 mmol/L (3.5-5.1)
[2016-10-26 06:33] LABS: Albumin 3.1 g/dL (3.4-5.0); BUN/Creatinine Ratio 18.4; Calcium 8.2 mg/dL (8.5-10.1)
[2016-10-26 06:35] LABS: Bilirubin, Total 0.9 mg/dL (0.2-1.0); Total Protein 6.5 g/dL (6.4-8.2)
[2016-10-26] MEDS: FUROSEMIDE 20 MG/2 ML VIAL IV SCH ×2 (06:52→18:04)
[2016-10-26] MEDS: CARVEDILOL 12.5 MG TAB PO SCH ×2 (09:46→21:54)
[2016-10-26] MEDS: BENAZEPRIL HCL 10 MG TAB PO SCH (09:48)
[2016-10-26] MEDS: amLODIPine BESYLATE 5 MG TAB PO SCH (09:49)
[2016-10-26] MEDS: ENOXAPARIN SOD 40 MG/0.4 ML SYRINGE SC SCH (09:50)
[2016-10-26] MEDS: RANOLAZINE 1000 MG PO SCH ×2 (09:50→22:00)
[2016-10-26] MEDS: FAMOTIDINE 20 MG TAB PO SCH ×2 (09:50→21:54)
[2016-10-26] MEDS ORDERED: IOHEXOL 350 MG/ML 100ML IJ ONE ×2 (11:26→11:43)
[2016-10-26] MEDS: LEVOFLOXACIN 500MG 100 ML IV SCH (12:38)
[2016-10-26] MEDS: HYDROcodone-ACET 5/325MG TAB PO PRN (15:44)
[2016-10-26] MEDS: ATORVASTATIN 20 MG TAB PO SCH (21:54)
[2016-10-27] VITALS (7 sets, daily range): BP systolic 103–123; BP diastolic 63–85
[2016-10-27] MEDS: ACCU-CHEK COMFORT CURVE STRIP VI SCH ×4 (00:24→17:42)
[2016-10-27] MEDS: InsuLIN REG 1unit/0.01ml Soln (100units/ml) SC SCH ×4 (00:24→17:52)
[2016-10-27 06:02] LABS: Basophils # (auto) 0 uL; Basophils % (auto) 0.3 % (0.0-2.0); Eosinophils # (auto) 0.1 uL; Eosinophils % (auto) 1.9 % (0.0-7.0); Hematocrit 27.4 % (41.0-53.0); Hemoglobin 9.5 g/dL (13.5-17.5); Lymphocytes # (auto) 2.5 uL; Lymphocytes % (auto) 33.3 % (10.0-50.0); Mean Corpuscular Hemoglobin 32.5 pg (28.0-32.0); Mean Corpuscular Hgb Conc. 34.8 g/dL (32.0-36.0); Mean Corpuscular Volume 93.4 fL (80.0-100.0); Mean Platelet Volume 7.8 fL (7.4-10.4); Monocytes # (auto) 0.4 uL; Monocytes % (auto) 5.7 % (0.0-12.0); Neutrophils # (auto) 4.3 uL; Neutrophils % (auto) 58.8 % (37.0-80.0); Platelet Count (auto) 262 10^3/uL (140-450); Red Cell Distribution Width 15.2 % (11.6-16.0); White Blood Cell 7.4 10^3/uL (4.4-10.8)
[2016-10-27] MEDS: FUROSEMIDE 20 MG/2 ML VIAL IV SCH ×2 (06:16→17:42)
[2016-10-27 06:35] LABS: BUN/Creatinine Ratio 21.4; Calcium 8.4 mg/dL (8.5-10.1); Magnesium 2.3 mg/dL (1.6-2.6); Phosphorus 4.3 mg/dL (2.5-4.90); Potassium 3.8 mmol/L (3.5-5.1)
[2016-10-27] MEDS: FAMOTIDINE 20 MG TAB PO SCH ×2 (10:00→21:44)
[2016-10-27] MEDS: RANOLAZINE 1000 MG PO SCH ×2 (10:00→21:45)
[2016-10-27] MEDS: LEVOFLOXACIN 500MG 100 ML IV SCH (10:38)
[2016-10-27] MEDS: amLODIPine BESYLATE 5 MG TAB PO SCH (10:39)
[2016-10-27] MEDS: BENAZEPRIL HCL 10 MG TAB PO SCH (10:40)
[2016-10-27] MEDS: CARVEDILOL 12.5 MG TAB PO SCH ×2 (10:41→21:44)
[2016-10-27] MEDS: ENOXAPARIN SOD 40 MG/0.4 ML SYRINGE SC SCH (10:42)
[2016-10-27] MEDS ORDERED: ASPI325T4 PO (13:57)
[2016-10-27] MEDS ORDERED: CLOP75TA41 PO (13:57)
[2016-10-27 17:43] LABS: Allen Test Yes; Blood 02Sat 84.4 % (96-100); Blood COHb 0.3 % (0.5-1.5); Blood MetHb 0.3 % (0.0-1.5); HCO3 24.3 mmol/L (22-26.0); HHb 15.5 % (0.0-5.0); MODE ROOM AIR; O2Hb 83.9 % (94.0-97.0); PCO2 33.8 mmHg (35.0-45.0); PCO2(T) 33.8 mmHg (35.0-45.0); PO2 50.5 mmHg (80.0-100.0); PO2(T) 50.5 mmHg (80.0-100.0); Room 0214T; Sample Type Arterial; pH 7.475 (7.350-7.450)
[2016-10-27] MEDS: ATORVASTATIN 20 MG TAB PO SCH (21:44)
[2016-10-28] MEDS: InsuLIN REG 1unit/0.01ml Soln (100units/ml) SC SCH ×3 (00:30→12:22)
[2016-10-28] MEDS: ACCU-CHEK COMFORT CURVE STRIP VI SCH ×3 (00:30→12:21)
[2016-10-28] MEDS: HYDROcodone-ACET 5/325MG TAB PO PRN (00:39)
[2016-10-28 05:00] VITALS: BP 111/70
[2016-10-28] MEDS: FUROSEMIDE 20 MG/2 ML VIAL IV SCH (05:45)
[2016-10-28 08:03] VITALS: BP 110/63
[2016-10-28] MEDS: RANOLAZINE 1000 MG PO SCH (10:00)
[2016-10-28] MEDS: LEVOFLOXACIN 500MG 100 ML IV SCH (10:36)
[2016-10-28] MEDS: FAMOTIDINE 20 MG TAB PO SCH (10:36)
[2016-10-28] MEDS: ENOXAPARIN SOD 40 MG/0.4 ML SYRINGE SC SCH (10:37)
[2016-10-28] MEDS: BENAZEPRIL HCL 10 MG TAB PO SCH (10:38)
[2016-10-28] MEDS: CARVEDILOL 12.5 MG TAB PO SCH (10:38)
[2016-10-28] MEDS: amLODIPine BESYLATE 5 MG TAB PO SCH (10:39)
[2016-10-28 12:26] VITALS: BP 147/81
== END 2016-10-28 15:07 | disposition home or self-care (01) | DRG 139 ==
LOC: ER 16:23 → TELE 16:24 → TELE-CENTR 23:55
PROVIDERS: ADMIT Nurse Practitioner; ATTEND Internal Medicine
DX: J18.9 Pneumonia, unspecified organism (principal); I50.43 Acute on chronic combined systolic (congestive) and diastolic (congestive) heart failure; I69.351 Hemiplegia and hemiparesis following cerebral infarction affecting right dominant side; E88.09 Other disorders of plasma-protein metabolism, not elsewhere classified; E11.9 Type 2 diabetes mellitus without complications; D50.9 Iron deficiency anemia, unspecified; E78.5 Hyperlipidemia, unspecified; I25.2 Old myocardial infarction; I11.0 Hypertensive heart disease with heart failure; I25.10 Atherosclerotic heart disease of native coronary artery without angina pectoris; Z98.61 Coronary angioplasty status; K21.9 Gastro-esophageal reflux disease without esophagitis; Z79.4 Long term (current) use of insulin; Z99.3 Dependence on wheelchair
CPT/HCPCS: 36415; 36600; 71010; 71275; 80048; 80053; 81001; 82805; 82962; 83605; 83735; 83880; 84100; 84484; 85025; 85379; 85610; 85730; 87040; 93005; 94640; 94761; 96365; J0696; J1815; J1956